=== PATIENT | male | born 1935 | race Caucasian/White ===

== ENCOUNTER 2017-11-12 21:19 | Emergency (ER) | payer MEDICARE, MEDICAID ==
[~2017-11-12] VITALS: Ht 182.9 cm; Wt 74.3 kg
[~2017-11-12 21:19] MED LIST: ACET-3068 PO; ASPI-920 PO; LORA1TAB PO; LOSARTAN; ZOC40T PO
[2017-11-12] MEDS ORDERED: ondansetron/PF 4mg/2ml inj IV ONE (22:50)
[2017-11-12] MEDS ORDERED: MIDAZolam 5mg/5ml vial ONE (23:03)
[2017-11-12] MEDS ORDERED: fentaNYL/PF 50MCG/1 ML 2ML syringe ONE (23:03)
[2017-11-12] MEDS ORDERED: LIDOcaine Viscous 15ml cup ONE (23:03)
[2017-11-12 23:10] VITALS: BP 30/75
[2017-11-12 23:30] VITALS: BP 113/52
[2017-11-12 23:40] VITALS: BP 94/52
[2017-11-12] MEDS ORDERED: normal saline 1000ml 1,000 ML IV SCH (23:44)
[2017-11-12] MEDS ORDERED: fentaNYL/PF 50MCG/1 ML 2ML syringe IV PRN (23:45)
[2017-11-12] MEDS ORDERED: MIDAZolam 5mg/5ml vial IV PRN (23:45)
[2017-11-12] MEDS ORDERED: simethicone 40mg/0.6ml oral drops 30ml MC ONE (23:45)
[2017-11-12] MEDS ORDERED: LIDOcaine Viscous 15ml cup PO ONE (23:45)
[2017-11-12 23:50] VITALS: BP 98/51
[2017-11-13] VITALS: BP 114/68
[2017-11-13 00:50] VITALS: BP 119/61
[2017-11-13 01:09] LABS: BASOPHILS % (AUTO) 0.9 % (0-1); EOSINOPHILS # (AUTO) 0.3 X10'3 (0-0.9); EOSINOPHILS % (AUTO) 5.5 % (0-6); HEMATOCRIT 31.8 % (42.0-52.0); HEMOGLOBIN 10.7 g/dl (14.0-17.9); LYMPHOCYTES # (AUTO) 1.3 X10'3 (1.1-4.8); MEAN CORPUSCULAR HGB CONC 33.6 % (33.0-36.5); MEAN CORPUSCULAR VOLUME 92.3 FL (78-98); MONOCYTES # (AUTO) 0.6 X10'3 (0-0.9); NEUTROPHILS % (AUTO) 57.6 % (42-75); PLATELET COUNT 173 X10'3 (140-440); RED BLOOD COUNT 3.45 X10'6 (4.70-6.10); RED CELL DISTRIBUTION WIDTH 13.4 % (11.5-14.5); WHITE BLOOD COUNT 5.2 X10'3 (4.5-11.0)
[2017-11-13 01:22] LABS: ALANINE AMINOTRANSFERASE 15 U/L (12-78); ALBUMIN 2.6 G/DL (3.4-5.0); ALBUMIN/GLOBULIN RATIO 0.6 (1.1-1.5); ALKALINE PHOSPHATASE 40 IU/L (46-116); ANION GAP 7 (8-16); ASPARTATE AMINO TRANSFERASE 14 U/L (10-37); BILIRUBIN,TOTAL 0.3 MG/DL (0.1-1.0); BLOOD UREA NITROGEN 7 MG/DL (7-18); BUN/CREATININE RATIO 8.6 (5.4-32.0); CALCIUM 8.5 MG/DL (8.5-10.1); CHLORIDE 107 MMOL/L (99-107); CREATININE 0.81 MG/DL (0.60-1.10); GLUCOSE 86 MG/DL (70-104); POTASSIUM 3.3 MMOL/L (3.5-5.1); SODIUM 143 MMOL/L (135-145); TOTAL CARBON DIOXIDE 29.1 MMOL/L (24-32); TOTAL PROTEIN 6.9 G/DL (6.4-8.2); eGFR > 90 ML/MIN
== END 2017-11-13 00:51 | disposition home or self-care (01) ==
LOC: ER 21:20
DX: T18.108A Unspecified foreign body in esophagus causing other injury, initial encounter (principal); I25.10 Atherosclerotic heart disease of native coronary artery without angina pectoris; E78.00 Pure hypercholesterolemia, unspecified; I25.2 Old myocardial infarction; Z95.5 Presence of coronary angioplasty implant and graft; Z88.8 Allergy status to other drugs, medicaments and biological substances; Z79.82 Long term (current) use of aspirin; W22.8XXA Striking against or struck by other objects, initial encounter; Y93.89 Activity, other specified; Y92.89 Other specified places as the place of occurrence of the external cause; Y99.8 Other external cause status
CPT/HCPCS: 36415; 43239; 43247; 80053; 85025; 96374; 99152; 99285; J2250; J2405; J3010; J7030; G0500

== ENCOUNTER 2017-11-14 19:39 | Emergency (ER) | payer MEDICARE, MEDICAID ==
[~2017-11-14] VITALS: Ht 182.9 cm; Wt 73.5 kg
[2017-11-14 08:56] VITALS: BP 110/66
[2017-11-14] MEDS ORDERED: glucagon, human recombinant 1mg kit IV ONE (20:25)
[2017-11-14 20:37] LABS: BASOPHILS # (AUTO) 0.1 X10'3 (0-0.2); BASOPHILS % (AUTO) 0.9 % (0-1); EOSINOPHILS # (AUTO) 0.3 X10'3 (0-0.9); EOSINOPHILS % (AUTO) 5.3 % (0-6); HEMATOCRIT 32.8 % (42.0-52.0); HEMOGLOBIN 11.1 g/dl (14.0-17.9); LYMPHOCYTES # (AUTO) 1.2 X10'3 (1.1-4.8); LYMPHOCYTES % (AUTO) 21.1 % (21-51); MEAN CORPUSCULAR HGB CONC 33.7 % (33.0-36.5); MEAN CORPUSCULAR VOLUME 91.7 FL (78-98); MEAN PLATELET VOLUME 8.6 FL (7.4-10.4); MONOCYTES # (AUTO) 0.6 X10'3 (0-0.9); MONOCYTES % (AUTO) 10.5 % (2-12); NEUTROPHILS # (AUTO) 3.5 X10'3 (1.8-7.7); NEUTROPHILS % (AUTO) 62.2 % (42-75); PLATELET COUNT 184 X10'3 (140-440); RED BLOOD COUNT 3.58 X10'6 (4.70-6.10); WHITE BLOOD COUNT 5.7 X10'3 (4.5-11.0)
[2017-11-14 20:51] LABS: ALANINE AMINOTRANSFERASE 13 U/L (12-78); ALBUMIN 2.8 G/DL (3.4-5.0); ALBUMIN/GLOBULIN RATIO 0.6 (1.1-1.5); ALKALINE PHOSPHATASE 47 IU/L (46-116); ANION GAP 11 (8-16); ASPARTATE AMINO TRANSFERASE 15 U/L (10-37); BILIRUBIN,TOTAL 0.3 MG/DL (0.1-1.0); BLOOD UREA NITROGEN 6 MG/DL (7-18); BUN/CREATININE RATIO 7.6 (5.4-32.0); CALCIUM 8.5 MG/DL (8.5-10.1); CHLORIDE 106 MMOL/L (99-107); CREATININE 0.79 MG/DL (0.60-1.10); GLUCOSE 98 MG/DL (70-104); POTASSIUM 3.4 MMOL/L (3.5-5.1); SODIUM 141 MMOL/L (135-145); TOTAL CARBON DIOXIDE 24.5 MMOL/L (24-32); TOTAL PROTEIN 7.2 G/DL (6.4-8.2); eGFR > 90 ML/MIN
[2017-11-14 20:56] VITALS: BP 110/66
[2017-11-14] MEDS ORDERED: MIDAZolam 5mg/5ml vial ONE (21:09)
[2017-11-14] MEDS ORDERED: fentaNYL/PF 50MCG/1 ML 2ML syringe ONE (21:09)
[2017-11-14] MEDS ORDERED: LIDOcaine Viscous 15ml cup ONE (21:09)
[2017-11-14] MEDS ORDERED: normal saline 1000ml 1,000 ML IV SCH (21:12)
[2017-11-14] MEDS ORDERED: fentaNYL/PF 50MCG/1 ML 2ML syringe IV PRN (21:15)
[2017-11-14] MEDS ORDERED: LIDOcaine Viscous 15ml cup PO ONE (21:15)
[2017-11-14] MEDS ORDERED: MIDAZolam 5mg/5ml vial IV PRN (21:15)
[2017-11-14] MEDS ORDERED: simethicone 40mg/0.6ml oral drops 30ml MC ONE (21:15)
[2017-11-14 21:45] VITALS: BP 115/67
[2017-11-14 21:55] VITALS: BP 102/68
[2017-11-14 22:05] VITALS: BP 109/66
[2017-11-14 22:15] VITALS: BP 110/70
[2017-11-15 01:03] VITALS: BP 101/59
== END 2017-11-15 01:05 | disposition home or self-care (01) ==
LOC: ER 19:40
DX: T18.198A Other foreign object in esophagus causing other injury, initial encounter (principal); R00.1 Bradycardia, unspecified; E78.00 Pure hypercholesterolemia, unspecified; I10 Essential (primary) hypertension; I25.10 Atherosclerotic heart disease of native coronary artery without angina pectoris; I25.2 Old myocardial infarction; W45.8XXA Other foreign body or object entering through skin, initial encounter; Y93.89 Activity, other specified; Y92.89 Other specified places as the place of occurrence of the external cause; Y99.8 Other external cause status
CPT/HCPCS: 36415; 43247; 43249; 80053; 85025; 93005; 96374; 99152; 99285; C1726; J1610; J2250; J3010; J7030; 88305; A4620; G0500

== ENCOUNTER 2018-01-03 20:19 | Emergency (ER) | payer MEDICARE, MEDICAID ==
[~2018-01-03] VITALS: Ht 182.9 cm; Wt 75.0 kg
[2018-01-03] MEDS ORDERED: TETanus/Pertussis (Acell)/Diphther VAC/PF (Tdap-Adult) 0.5ml syringe IMVAC ONE (20:45)
[2018-01-03] MEDS ORDERED: LIDOcaine 1% 30ml preserv. free vial IJ ONE (20:45)
[2018-01-03 21:56] VITALS: BP 106/68
== END 2018-01-03 21:57 | disposition home or self-care (01) ==
LOC: ER 20:20
DX: S60.451A Superficial foreign body of left index finger, initial encounter (principal); I25.10 Atherosclerotic heart disease of native coronary artery without angina pectoris; E78.00 Pure hypercholesterolemia, unspecified; I10 Essential (primary) hypertension; I25.2 Old myocardial infarction; Z98.61 Coronary angioplasty status; Z88.5 Allergy status to narcotic agent; Z79.899 Other long term (current) drug therapy; Z79.82 Long term (current) use of aspirin; W45.8XXA Other foreign body or object entering through skin, initial encounter; Y93.89 Activity, other specified; Y92.89 Other specified places as the place of occurrence of the external cause; Y99.8 Other external cause status
CPT/HCPCS: 10120; 90471; 90715; 99284; J3490

== ENCOUNTER 2018-01-06 14:08 | Emergency (ER) | payer MEDICARE, MEDICAID ==
[~2018-01-06] VITALS: Ht 180.3 cm; Wt 64.0 kg
[2018-01-06 14:59] LABS: BASOPHILS % (AUTO) 0.8 % (0-1); EOSINOPHILS # (AUTO) 0.2 X10'3 (0-0.9); EOSINOPHILS % (AUTO) 3.6 % (0-6); HEMATOCRIT 37.4 % (42.0-52.0); HEMOGLOBIN 12.8 g/dl (14.0-17.9); LYMPHOCYTES # (AUTO) 0.9 X10'3 (1.1-4.8); LYMPHOCYTES % (AUTO) 13.3 % (21-51); MEAN CORPUSCULAR HEMOGLOBIN 32.2 PG (27.0-31.0); MEAN CORPUSCULAR HGB CONC 34.3 % (33.0-36.5); MEAN CORPUSCULAR VOLUME 93.8 FL (78-98); MONOCYTES # (AUTO) 0.6 X10'3 (0-0.9); MONOCYTES % (AUTO) 9.8 % (2-12); NEUTROPHILS # (AUTO) 4.7 X10'3 (1.8-7.7); NEUTROPHILS % (AUTO) 72.5 % (42-75); PLATELET COUNT 251 X10'3 (140-440); RED BLOOD COUNT 3.98 X10'6 (4.70-6.10); RED CELL DISTRIBUTION WIDTH 15.5 % (11.5-14.5); WHITE BLOOD COUNT 6.5 X10'3 (4.5-11.0)
[2018-01-06 15:09] LABS: PARTIAL THROMBOPLASTIN TIME 25 SECONDS (22-32); PROTHROMBIN TIME 10.8 SECONDS (9.0-12.0)
[2018-01-06 15:13] LABS: ALANINE AMINOTRANSFERASE 16 U/L (12-78); ALBUMIN 2.9 G/DL (3.4-5.0); ALBUMIN/GLOBULIN RATIO 0.5 (1.1-1.5); ALKALINE PHOSPHATASE 52 IU/L (46-116); ANION GAP 7 (8-16); ASPARTATE AMINO TRANSFERASE 13 U/L (10-37); BILIRUBIN,TOTAL 0.2 MG/DL (0.1-1.0); BLOOD UREA NITROGEN 11 MG/DL (7-18); BUN/CREATININE RATIO 13.9 (5.4-32.0); CALCIUM 9.1 MG/DL (8.5-10.1); CHLORIDE 106 MMOL/L (99-107); CREATININE 0.79 MG/DL (0.60-1.10); GLUCOSE 97 MG/DL (70-104); POTASSIUM 4.1 MMOL/L (3.5-5.1); SODIUM 139 MMOL/L (135-145); TOTAL CARBON DIOXIDE 26.1 MMOL/L (24-32); TOTAL PROTEIN 8.2 G/DL (6.4-8.2); eGFR > 90 ML/MIN
[2018-01-06] MEDS ORDERED: normal saline 1000ML IV soln IVB ONE (15:25)
[2018-01-06 17:02] VITALS: BP 127/68
== END 2018-01-06 17:05 | disposition home or self-care (01) ==
LOC: ER 14:08
DX: R42 Dizziness and giddiness (principal); I10 Essential (primary) hypertension; I25.10 Atherosclerotic heart disease of native coronary artery without angina pectoris; I25.2 Old myocardial infarction; E78.00 Pure hypercholesterolemia, unspecified; Z98.61 Coronary angioplasty status; Z88.5 Allergy status to narcotic agent; Z79.82 Long term (current) use of aspirin; Z79.899 Other long term (current) drug therapy
CPT/HCPCS: 36415; 71045; 80053; 82948; 84484; 85025; 85610; 85730; 93005; 96360; 99285; J7030

== ENCOUNTER 2018-01-12 12:10 | Day surgery (SDC) | payer MEDICARE, MEDICAID ==
[~2018-01-12] VITALS: Ht 180.3 cm; Wt 81.2 kg
[2018-01-12 12:20] VITALS: BP 109/60
[2018-01-12] MEDS ORDERED: MIDAZolam 5mg/5ml vial ONE (12:39)
[2018-01-12] MEDS ORDERED: LIDOcaine Viscous 15ml cup ONE (12:39)
[2018-01-12] MEDS ORDERED: fentaNYL/PF 50MCG/1 ML 2ML syringe ONE (12:39)
[2018-01-12] MEDS ORDERED: DOCU-28 PO (12:43)
[2018-01-12 13:32] VITALS: BP 119/65
[2018-01-12 13:42] VITALS: BP 113/66
[2018-01-12 13:52] VITALS: BP 107/63
[2018-01-12 14:02] VITALS: BP 114/63
[2018-01-12 14:22] VITALS: BP 119/65
== END 2018-01-12 14:05 | disposition home or self-care (01) ==
LOC: GI LAB 12:10
PROVIDERS: ATTEND Internal Medicine Gastroenterology
DX: K22.2 Esophageal obstruction (principal); K44.9 Diaphragmatic hernia without obstruction or gangrene; I25.10 Atherosclerotic heart disease of native coronary artery without angina pectoris; I10 Essential (primary) hypertension; I25.2 Old myocardial infarction; E78.00 Pure hypercholesterolemia, unspecified; Z95.5 Presence of coronary angioplasty implant and graft; Z79.891 Long term (current) use of opiate analgesic; Z88.5 Allergy status to narcotic agent; Z79.82 Long term (current) use of aspirin; Z98.890 Other specified postprocedural states; Z79.899 Other long term (current) drug therapy
CPT/HCPCS: 43249; G0500; J2250; J3010; J7030; A4620

== ENCOUNTER 2018-01-20 17:51 | Emergency (ER) | payer MEDICARE, MEDICAID ==
[~2018-01-20] VITALS: Ht 180.3 cm; Wt 70.8 kg
[~2018-01-20 17:51] MED LIST changes: +DOCU-28 PO
[2018-01-20 17:56] VITALS: BP 106/61
[2018-01-20] MEDS ORDERED: AMOX-419 PO (18:06)
== END 2018-01-20 18:33 | disposition home or self-care (01) ==
LOC: ER 17:52
DX: H66.91 Otitis media, unspecified, right ear (principal); H72.91 Unspecified perforation of tympanic membrane, right ear; I25.10 Atherosclerotic heart disease of native coronary artery without angina pectoris; E78.00 Pure hypercholesterolemia, unspecified; I10 Essential (primary) hypertension; I25.2 Old myocardial infarction; Z98.61 Coronary angioplasty status; Z88.5 Allergy status to narcotic agent; Z79.82 Long term (current) use of aspirin; Z79.899 Other long term (current) drug therapy
CPT/HCPCS: 99283

== ENCOUNTER 2018-01-27 18:27 | Emergency (ER) | payer MEDICARE, MEDICAID ==
[~2018-01-27] VITALS: Ht 180.3 cm; Wt 70.3 kg
[~2018-01-27 18:27] MED LIST changes: +AMOX-419 PO
[2018-01-27 18:36] VITALS: BP 115/68
== END 2018-01-27 21:07 | disposition home or self-care (01) ==
LOC: ER 18:27
DX: B36.9 Superficial mycosis, unspecified (principal); H62.41 Otitis externa in other diseases classified elsewhere, right ear; I25.10 Atherosclerotic heart disease of native coronary artery without angina pectoris; E78.00 Pure hypercholesterolemia, unspecified; I10 Essential (primary) hypertension; I25.2 Old myocardial infarction; Z98.61 Coronary angioplasty status; Z88.5 Allergy status to narcotic agent; Z79.82 Long term (current) use of aspirin; Z79.899 Other long term (current) drug therapy
CPT/HCPCS: 99281

== ENCOUNTER 2018-06-13 19:44 | Emergency (ER) | payer MEDICARE, MEDICAID ==
[~2018-06-13] VITALS: Ht 180.3 cm; Wt 75.0 kg
[~2018-06-13 19:44] MED LIST changes: -AMOX-419 PO
[2018-06-13 20:00] VITALS: BP 109/64
== END 2018-06-13 23:41 | disposition left against medical advice (07) ==
LOC: ER 19:44
DX: R10.30 Lower abdominal pain, unspecified (principal); Z53.21 Procedure and treatment not carried out due to patient leaving prior to being seen by health care provider

== ENCOUNTER 2018-08-04 11:17 | Day surgery (SDC) | payer MEDICARE, MEDICAID ==
[2018-07-31 16:11] LABS: BASOPHILS # (AUTO) 0.1 X10'3 (0-0.2); EOSINOPHILS # (AUTO) 0.3 X10'3 (0-0.9); EOSINOPHILS % (AUTO) 5.6 % (0-6); LYMPHOCYTES % (AUTO) 17.1 % (21-51); MEAN CORPUSCULAR HEMOGLOBIN 30.4 PG (27.0-31.0); MEAN CORPUSCULAR HGB CONC 32.6 % (33.0-36.5); MEAN CORPUSCULAR VOLUME 93.3 FL (78-98); MEAN PLATELET VOLUME 9.4 FL (7.4-10.4); MONOCYTES # (AUTO) 0.6 X10'3 (0-0.9); NEUTROPHILS # (AUTO) 4.1 X10'3 (1.8-7.7); NEUTROPHILS % (AUTO) 66.3 % (42-75); PRE OP HEMATOCRIT 37.2 % (42.0-52.0); PRE OP HEMOGLOBIN 12.1 g/dL (14.0-17.9); PRE OP PLATELET COUNT 180 X10'3 (140-440); RED BLOOD COUNT 3.99 X10'6 (4.70-6.10)
[2018-07-31 16:34] LABS: ALBUMIN 2.6 G/DL (3.4-5.0); ALBUMIN/GLOBULIN RATIO 0.4 (1.1-1.5); ALKALINE PHOSPHATASE 52 IU/L (46-116); BLOOD UREA NITROGEN 10 MG/DL (7-18); BUN/CREATININE RATIO 10.6 (5.4-32.0); CALCIUM 8.6 MG/DL (8.5-10.1); CHLORIDE 105 MMOL/L (99-107); CREATININE 0.94 MG/DL (0.60-1.10); PRE OP ALT 15 U/L (30-65); PRE OP ANION GAP 9 (8-16); PRE OP AST 11 U/L (10-37); PRE OP BILIRUB, TOTAL 0.2 MG/DL (0.0-1.0); PRE OP GLUCOSE 93 MG/DL (70-104); PRE OP POTASSIUM 3.8 MMOL/L (3.4-5.1); PRE OP SODIUM 141 MMOL/L (135-145); TOTAL PROTEIN 8.5 G/DL (6.4-8.2); eGFR 77 ML/MIN
[2018-07-31 16:49] LABS: CLARITY,URINE CLEAR (Clear); COLOR,URINE YELLOW (Yellow); GLUCOSE, URINE NEGATIVE (Neg); KETONES,URINE TRACE mg/dl (Neg); LEUKOCYTE ESTERASE ,URINE NEGATIVE (Neg); NITRITES, URINE NEGATIVE (Neg); OCCULT BLOOD,URINE LARGE (Neg); PH,URINE 5.5 (4.8-8.0); PROTEIN,URINE 100 mg/dl (Neg); UROBILINOGEN,URINE 0.2 E.U/dL (0.2-1.0)
[2018-07-31 16:52] LABS: UA COLLECTION TYPE CLN CATCH MIDSTREAM
[2018-07-31 16:55] LABS: BACTERIA,URINE NONE SEEN /HPF (Neg); MUCUS STRANDS NONE SEEN /LPF (Neg); SQUAMOUS EPITHELIAL CELL,UR FEW /LPF (FEW); WBC,URINE 0-4 /HPF (0-4)
[2018-08-04] VITALS (10 sets, daily range): BP systolic 110–139; BP diastolic 69–83
[~2018-08-04] VITALS: Ht 180.3 cm; Wt 74.8 kg
[~2018-08-04 11:17] MED LIST changes: -ACET-3068 PO; -DOCU-28 PO; +GABA-581 PO; -LORA1TAB PO; +LORA2TAB PO; +LOSA25TA41 PO; -LOSARTAN; +OXYB5TAB11 PO; +SENN8.6T8 PO; +cefazolin/dext.iso 2gm/100 ML IV ONE; +famotidine 20mg tablet PO ONE; +ringers solution, lacted 1,000 ML IV SCH
[2018-08-04] MEDS ORDERED: ringers solution, lacted 1,000 ML IV SCH (12:40)
[2018-08-04] MEDS ORDERED: morphine 4 MG/ML inj SYRINge IV PRN ×2 (12:40)
[2018-08-04] MEDS ORDERED: ondansetron/PF 4mg/2ml inj IV PRN (12:40)
[2018-08-04] MEDS ORDERED: meperidine/PF 25mg/ml syringe IV PRN ×3 (12:40)
[2018-08-04] MEDS ORDERED: proCHLORperazine 10 MG/2 ml inj IV PRN (12:40)
[2018-08-04] MEDS ORDERED: ceFAZolin 1000mg inj ONE (13:00)
[2018-08-04] MEDS ORDERED: BUPIVAcaine/PF 2.5mg/ml (0.25%) 10ml vial ONE ×2 (13:00→13:29)
[2018-08-04] MEDS ORDERED: sevoflurane 250ml liquid IH ONE (13:16)
[2018-08-04] MEDS ORDERED: fentaNYL/PF 50MCG/1 ML 2ML syringe ONE (13:18)
[2018-08-04] MEDS ORDERED: propofol inj 20 ML IV ONE (13:20)
--- NOTE | 2018-08-04 14:40 | NUR ---
Received from OR via bed, accompanied by Anesthesiologist. Report received. Initial physical assessment done and recorded.
--- NOTE | 2018-08-04 16:30 | NUR ---
Discharge criteria met, discharge instructions given, demonstrates verbal understanding. Discharged home in good condition.
== END 2018-08-04 16:30 | disposition home or self-care (01) ==
LOC: PAS 11:17
PROVIDERS: ATTEND Surgery
DX: K40.90 Unilateral inguinal hernia, without obstruction or gangrene, not specified as recurrent (principal); D17.6 Benign lipomatous neoplasm of spermatic cord; I45.19 Other right bundle-branch block; I25.2 Old myocardial infarction; I10 Essential (primary) hypertension; I25.10 Atherosclerotic heart disease of native coronary artery without angina pectoris; F41.8 Other specified anxiety disorders; Z79.891 Long term (current) use of opiate analgesic; Z88.5 Allergy status to narcotic agent; Z87.19 Personal history of other diseases of the digestive system; Z87.39 Personal history of other diseases of the musculoskeletal system and connective tissue; Z79.82 Long term (current) use of aspirin; Z95.5 Presence of coronary angioplasty implant and graft; Z90.89 Acquired absence of other organs; Z98.890 Other specified postprocedural states; Z79.899 Other long term (current) drug therapy
CPT/HCPCS: 36415; 49505; 80053; 81001; 82948; 85025; 93005; A6449; C1781; J0690; J2175; J2704; J3010; J3490; 88304; A7000; J7120

== ENCOUNTER 2018-12-21 14:21 | Emergency (ER) | payer MEDICARE, MEDICAID ==
[~2018-12-21] VITALS: Ht 180.3 cm; Wt 75.0 kg
[~2018-12-21 14:21] MED LIST changes: -cefazolin/dext.iso 2gm/100 ML IV ONE; -famotidine 20mg tablet PO ONE; -ringers solution, lacted 1,000 ML IV SCH
[2018-12-21] MEDS ORDERED: normal saline 1000ML IV soln IVB ONE (15:35)
[2018-12-21] MEDS ORDERED: glucagon, human recombinant 1mg kit IV ONE (15:35)
[2018-12-21] MEDS ORDERED: metoclopramide 5 mg/ml inj IV ONE (15:35)
[2018-12-21] MEDS ORDERED: LIDOcaine Viscous 15ml cup MM PRN (15:35)
[2018-12-21] MEDS ORDERED: LORazepam 2 mg/ml vial IV ONE (15:35)
[2018-12-21 16:10] LABS: BASOPHILS # (AUTO) 0.1 X10'3 (0-0.2); BASOPHILS % (AUTO) 0.8 % (0-1); EOSINOPHILS # (AUTO) 0.2 X10'3 (0-0.9); EOSINOPHILS % (AUTO) 2.2 % (0-6); HEMATOCRIT 32.1 % (42.0-52.0); HEMOGLOBIN 10.9 g/dl (14.0-17.9); LYMPHOCYTES # (AUTO) 0.9 X10'3 (1.1-4.8); LYMPHOCYTES % (AUTO) 11.3 % (21-51); MEAN CORPUSCULAR HEMOGLOBIN 31.5 PG (27.0-31.0); MEAN CORPUSCULAR HGB CONC 33.8 g/dL (33.0-36.5); MEAN CORPUSCULAR VOLUME 93.2 FL (78-98); MONOCYTES # (AUTO) 0.8 X10'3 (0-0.9); MONOCYTES % (AUTO) 9.8 % (2-12); NEUTROPHILS # (AUTO) 6.2 X10'3 (1.8-7.7); NEUTROPHILS % (AUTO) 75.9 % (42-75); PLATELET COUNT 214 X10'3 (140-440); RED BLOOD COUNT 3.45 X10'6 (4.70-6.10); RED CELL DISTRIBUTION WIDTH 14.9 % (11.5-14.5); WHITE BLOOD COUNT 8.2 X10'3 (4.5-11.0)
[2018-12-21 16:12] LABS: ALANINE AMINOTRANSFERASE 15 U/L (12-78); ALBUMIN 2.5 G/DL (3.4-5.0); ALBUMIN/GLOBULIN RATIO 0.4 (1.1-1.5); ALKALINE PHOSPHATASE 50 IU/L (46-116); ANION GAP 8 (8-16); ASPARTATE AMINO TRANSFERASE 14 U/L (10-37); BILIRUBIN,TOTAL 0.3 MG/DL (0.1-1.0); BLOOD UREA NITROGEN 7 MG/DL (7-18); BUN/CREATININE RATIO 8.8 (5.4-32.0); CALCIUM 9.3 MG/DL (8.5-10.1); CHLORIDE 105 MMOL/L (99-107); GLUCOSE 87 MG/DL (70-104); POTASSIUM 3.5 MMOL/L (3.5-5.1); SODIUM 138 MMOL/L (135-145); TOTAL CARBON DIOXIDE 25.3 MMOL/L (24-32); TOTAL PROTEIN 8.6 G/DL (6.4-8.2); eGFR > 90 ML/MIN
[2018-12-21 16:47] VITALS: BP 134/74
== END 2018-12-21 16:49 | disposition home or self-care (01) ==
LOC: ER 14:21
DX: T18.198A Other foreign object in esophagus causing other injury, initial encounter (principal); I25.10 Atherosclerotic heart disease of native coronary artery without angina pectoris; E78.00 Pure hypercholesterolemia, unspecified; I10 Essential (primary) hypertension; I25.2 Old myocardial infarction; Z95.5 Presence of coronary angioplasty implant and graft; Z88.5 Allergy status to narcotic agent; Z79.82 Long term (current) use of aspirin; Z79.899 Other long term (current) drug therapy; Y92.89 Other specified places as the place of occurrence of the external cause
CPT/HCPCS: 36415; 80053; 85025; 85610; 96374; 96375; 99283; J1610; J2060; J2765; J7030

== ENCOUNTER 2019-12-17 14:44 | Emergency (ER) | payer MEDICARE, MEDICAID ==
[~2019-12-17] VITALS: Ht 182.9 cm; Wt 75.0 kg
[~2019-12-17 14:44] MED LIST changes: -OXYB5TAB11 PO; +OXYB5TAB16 PO
[2019-12-17] MEDS ORDERED: LIDOcaine 1% W/epiNEPHrine 1:200,000 10ml vial IJ ONE (15:00)
[2019-12-17] MEDS ORDERED: ceFAZolin 1gm IM kit IM ONE (16:35)
[2019-12-17] MEDS ORDERED: IBUP-1984 PO (16:52)
[2019-12-17] MEDS ORDERED: CEPH500C5 PO (16:52)
[2019-12-17] MEDS ORDERED: ibuprofen tablet 400 MG TABLET PO ONE (16:55)
[2019-12-17 18:14] VITALS: BP 133/90
== END 2019-12-17 18:16 | disposition home or self-care (01) ==
LOC: ER 14:45
DX: S62.91XB Unspecified fracture of right hand, initial encounter for open fracture (principal); S20.211A Contusion of right front wall of thorax, initial encounter; S00.81XA Abrasion of other part of head, initial encounter; I25.10 Atherosclerotic heart disease of native coronary artery without angina pectoris; E78.00 Pure hypercholesterolemia, unspecified; I10 Essential (primary) hypertension; I25.2 Old myocardial infarction; Z98.61 Coronary angioplasty status; Z88.5 Allergy status to narcotic agent; Z79.82 Long term (current) use of aspirin; Z79.2 Long term (current) use of antibiotics; Z79.899 Other long term (current) drug therapy; W18.39XA Other fall on same level, initial encounter; Y93.89 Activity, other specified; Y92.89 Other specified places as the place of occurrence of the external cause; Y99.8 Other external cause status
CPT/HCPCS: 29125; 71045; 71100; 73130; 96372; 99284; J0690

== ENCOUNTER 2020-01-19 15:58 | Emergency (ER) | payer MEDICARE, MEDICAID ==
[~2020-01-19] VITALS: Ht 180.3 cm; Wt 54.0 kg
[~2020-01-19 15:58] MED LIST changes: +CEPH500C5 PO
[2020-01-19 16:06] VITALS: BP 135/72
[2020-01-19] MEDS ORDERED: TRAM50TA2 PO (17:35)
== END 2020-01-19 18:56 | disposition home or self-care (01) ==
LOC: ER 15:59
DX: S20.221A Contusion of right back wall of thorax, initial encounter (principal); M81.0 Age-related osteoporosis without current pathological fracture; M54.5 Low back pain; I25.10 Atherosclerotic heart disease of native coronary artery without angina pectoris; E78.00 Pure hypercholesterolemia, unspecified; I10 Essential (primary) hypertension; I25.2 Old myocardial infarction; Z98.890 Other specified postprocedural states; Z88.8 Allergy status to other drugs, medicaments and biological substances; Z79.82 Long term (current) use of aspirin; Z79.2 Long term (current) use of antibiotics; Z79.899 Other long term (current) drug therapy; W18.39XA Other fall on same level, initial encounter; Y93.89 Activity, other specified; Y92.89 Other specified places as the place of occurrence of the external cause; Y99.8 Other external cause status
CPT/HCPCS: 72128; 72131; 99285

== ENCOUNTER 2020-02-08 11:55 | Emergency (ER) | payer MEDICARE, MEDICAID ==
[~2020-02-08] VITALS: Ht 180.3 cm; Wt 77.3 kg
[~2020-02-08 11:55] MED LIST changes: +TRAM50TA2 PO
[2020-02-08] MEDS ORDERED: ondansetron 4mg rapidly disintigrating tab PO ONE (12:20)
[2020-02-08] MEDS ORDERED: morphine 4 MG/ML inj SYRINge IM ONE (12:20)
[2020-02-08] MEDS ORDERED: oxyCODONE/APAP 5-325mg tablet PO ONE (13:35)
[2020-02-08 13:49] VITALS: BP 129/73
[2020-02-08] MEDS ORDERED: DOCU-149 PO (13:50)
[2020-02-08] MEDS ORDERED: OXYC-145 PO (13:50)
[2020-02-08] MEDS ORDERED: NALO4SPR BOTHNARES (13:50)
== END 2020-02-08 13:59 | disposition home or self-care (01) ==
LOC: ER 11:55
DX: S22.068A Other fracture of T7-T8 thoracic vertebra, initial encounter for closed fracture (principal); I25.10 Atherosclerotic heart disease of native coronary artery without angina pectoris; E78.00 Pure hypercholesterolemia, unspecified; I10 Essential (primary) hypertension; I25.2 Old myocardial infarction; G89.29 Other chronic pain; Z95.5 Presence of coronary angioplasty implant and graft; Z88.5 Allergy status to narcotic agent; Z79.82 Long term (current) use of aspirin; Z79.899 Other long term (current) drug therapy; W18.30XA Fall on same level, unspecified, initial encounter; Y93.89 Activity, other specified; Y92.89 Other specified places as the place of occurrence of the external cause; Y99.9 Unspecified external cause status
CPT/HCPCS: 72128; 72131; 96372; 99285; J2270

== ENCOUNTER 2020-03-06 20:52 | Emergency (ER) | payer MEDICARE, MEDICAID ==
[~2020-03-06] VITALS: Ht 205.7 cm; Wt 61.8 kg
[~2020-03-06 20:52] MED LIST changes: +DOCU-149 PO; +NALO4SPR BOTHNARES; +OXYC-145 PO; -TRAM50TA2 PO
[2020-03-06 20:58] VITALS: BP 124/75
[2020-03-06] MEDS ORDERED: oxyCODONE/APAP 5-325mg tablet PO ONE (21:20)
[2020-03-10] MEDS ORDERED: IBUP-1984 PO (13:09)
[2020-03-10] MEDS ORDERED: LORA-269 PO (13:09)
[2020-03-10] MEDS ORDERED: OXYB5TAB16 PO (13:09)
[2020-03-10] MEDS ORDERED: PER5325T PO (13:09)
[2020-03-10] MEDS ORDERED: ASPI-1265 PO (13:09)
[2020-03-10] MEDS ORDERED: ONDA8TAB13 PO (13:09)
[2020-03-10] MEDS ORDERED: ROSU40TA22 PO (13:09)
[2020-03-10] MEDS ORDERED: CETI10TA14 PO (13:09)
== END 2020-03-06 22:50 | disposition home or self-care (01) ==
LOC: ER 20:53
DX: M54.5 Low back pain (principal); G89.29 Other chronic pain; I25.10 Atherosclerotic heart disease of native coronary artery without angina pectoris; E78.00 Pure hypercholesterolemia, unspecified; I25.2 Old myocardial infarction; Z98.61 Coronary angioplasty status; Z79.899 Other long term (current) drug therapy; Z79.82 Long term (current) use of aspirin
CPT/HCPCS: 99283

== ENCOUNTER 2020-03-07 09:00 | Emergency (ER) | payer MEDICARE, MEDICAID ==
[~2020-03-07] VITALS: Ht 175.3 cm; Wt 72.7 kg
--- NOTE | 2020-03-07 10:56 | NUR ---
spoke to psych social worker, she called [facility] for [facility] for pt, she then states she called , and will call [facility]
--- NOTE | 2020-03-07 11:26 | NUR ---
[facility] is here to take pt home. talked with and showed pt how to use walker. he used walker in transfer to wheelchair. pt taking walker home.
[2020-03-07 11:28] VITALS: BP 143/86
[2020-03-10] MEDS ORDERED: LORA-269 PO (13:09)
[2020-03-10] MEDS ORDERED: ROSU40TA22 PO (13:09)
[2020-03-10] MEDS ORDERED: PER5325T PO (13:09)
[2020-03-10] MEDS ORDERED: CETI10TA14 PO (13:09)
[2020-03-10] MEDS ORDERED: ASPI-1265 PO (13:09)
[2020-03-10] MEDS ORDERED: IBUP-1984 PO (13:09)
[2020-03-10] MEDS ORDERED: ONDA8TAB13 PO (13:09)
[2020-03-10] MEDS ORDERED: OXYB5TAB16 PO (13:09)
== END 2020-03-07 11:05 | disposition home or self-care (01) ==
LOC: ER 09:00
DX: M54.5 Low back pain (principal); G89.29 Other chronic pain; I25.10 Atherosclerotic heart disease of native coronary artery without angina pectoris; E78.00 Pure hypercholesterolemia, unspecified; I10 Essential (primary) hypertension; I25.2 Old myocardial infarction; Z95.5 Presence of coronary angioplasty implant and graft; Z79.82 Long term (current) use of aspirin; Z79.899 Other long term (current) drug therapy
CPT/HCPCS: 99284